=== PATIENT | male | born 1995 | race Caucasian/White ===

== ENCOUNTER → 2021-07-15 09:16 | Outpatient (CLI) | payer OTHER, SELFPAY | PROVIDERS: PCP Nurse Practitioner Family; Visit Provider Nurse Practitioner Family | DX: R07.2 Precordial pain (principal) | CPT/HCPCS: 93306 ==

== ENCOUNTER → 2022-01-08 09:41 | Outpatient (CLI) | payer OTHER, SELFPAY ==
--- NOTE | 2022-01-08 | CA_ITS ---
FINAL REPORT TECHNIQUE: Color Doppler, duplex Doppler and compression sonography of the left lower extremity deep venous systems was performed. CLINICAL HISTORY: Patient states his toes having been going numb in left foot with pain in the left leg x 3 weeks. He denies trauma. FINDINGS: There is no evidence of deep venous thrombosis from the level of the groin to the calf. The veins are patent and compressible. IMPRESSION: No evidence of deep venous thrombosis left lower extremity. Reviewed, Interpreted and Dictated by Malik Meneses III, MD Transcribed by Yodit Wilson Authenticated by Malik Meneses III, MD on 01/08/2022 12:09:38 PM [facility]
== END ==
PROVIDERS: PCP Nurse Practitioner Family; Visit Provider Nurse Practitioner Family
DX: M79.662 Pain in left lower leg (principal)
CPT/HCPCS: 93971